=== PATIENT | female | born 1955 | race Caucasian/White ===

== ENCOUNTER 2016-09-14 13:15 | Emergency (ER) | payer MEDICAID ==
[2016-09-14 13:16] VITALS: BMI 23.8
[2016-09-14 13:30] VITALS: TEMP 98.1; O2SAT 98
--- NOTE | 2016-09-14 14:47 | C.PDOC ---
Time Seen by Provider: 09/14/16 13:44 Chief Complaint (Nursing): Upper Extremity Problem/Injury Past Medical History Vital Signs: Last Vital Signs Temp 98.1 F 09/14/16 13:25 Pulse 73 09/14/16 13:25 Resp 20 09/14/16 13:25 BP 147/90 09/14/16 13:25 Pulse Ox 98 09/14/16 13:25 - Medical History PMH: Asthma, Bronchitis, HTN, Hyperlipidemia Denies: Chronic Kidney Disease Family History: States: Unknown Family Hx - Social History Hx Alcohol Use: No Hx Substance Use: No - Immunization History Hx Tetanus Toxoid Vaccination: No Hx Influenza Vaccination: No Hx Pneumococcal Vaccination: No ED Course And Treatment O2 Sat by Pulse Oximetry: 98 Disposition Counseled Patient/Family Regarding: Diagnosis, Need For Followup, Rx Given - Disposition Referrals: Red Brown MD [Staff Provider] - Disposition: HOME/ ROUTINE Disposition Time: 14:48 Condition: STABLE Additional Instructions: [place] Flexeril 5 mg cada 8 horas para el dolor en el hombro. Esta medicina te hace dormir, as que s consciente. Contine tomando Tylenol y antiinflamatorio que el oyu tiene en casa. Siga con iqbal mdico en 1-2 da Prescriptions: Cyclobenzaprine [Flexeril] 5 mg PO TID #9 tab Instructions: Muscle Spasm (ED) Forms: Gen Discharge Inst [place] - Clinical Impression Clinical Impression: Trapezius muscle spasm
--- NOTE | 2016-09-14 14:54 | C.PDOC ---
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 Pt denies fever, chills, numbness, weakness or any other complaints. Time Seen by Provider: 09/14/16 13:44 Chief Complaint (Nursing): Upper Extremity Problem/Injury History Per: Patient History/Exam Limitations: no limitations Onset/Duration Of Symptoms: Days Current Symptoms Are (Timing): Worse Quality: "Pain" Severity: Moderate Recent travel outside of the [place]: No Past Medical History Reviewed: Historical Data, Nursing Documentation, Vital Signs Vital Signs: Last Vital Signs Temp 98.1 F 09/14/16 13:25 Pulse 75 09/14/16 14:57 Resp 18 09/14/16 14:57 BP 132/72 09/14/16 14:57 Pulse Ox 98 09/14/16 23:05 - Medical History PMH: Asthma, Bronchitis, HTN, Hyperlipidemia Family History: States: Unknown Family Hx - Social History Hx Alcohol Use: No Hx Substance Use: No - Immunization History Hx Tetanus Toxoid Vaccination: No Hx Influenza Vaccination: No Hx Pneumococcal Vaccination: No Review Of Systems Constitutional: Negative for: Fever, Chills Musculoskeletal: Positive for: Shoulder Pain (left shoulder pain) Neurological: Negative for: Weakness, Numbness Physical Exam - Physical Exam Appears: Non-toxic, No Acute Distress Skin: Warm, Dry, No Rash Head: Atraumatic, Normacephalic Neck: Normal ROM, No Midline Cervical Tenderness, Paracervical Tenderness (mild left), Supple, Other (left trapezius tenderness with muscle spasm) Cardiovascular: Rhythm Regular, No Murmur Respiratory: Normal Breath Sounds, No Rales, No Rhonchi, No Wheezing Extremity: No Normal ROM (decreased ROM left shoulder secondary to pain), No Deformity, No Swelling Neurological/Psych: Oriented x3, Normal Speech, Normal Motor, Normal Sensation ED Course And Treatment O2 Sat by Pulse Oximetry: 98 (room air) Pulse Ox Interpretation: Normal Progress Note: Instructed patient to continue tylenol/nsaid, added muscle relaxant and warm compresses. Disposition - Disposition Referrals: Red Brown MD [Staff Provider] - Disposition: HOME/ ROUTINE Disposition Time: 14:55 Condition: STABLE Additional Instructions: [place] Flexeril 5 mg cada 8 horas para el dolor en el hombro. Esta medicina te hace dormir, as que s consciente. Contine tomando Tylenol y antiinflamatorio que el oyu tiene en casa. 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 - Scribe Statement The provider has reviewed the documentation as recorded by the Alexibcharito Ford All medical record entries made by the Scribe were at my direction and personally dictated by me. I have reviewed the chart and agree that the record accurately reflects my personal performance of the history, physical exam, medical decision making, and the department course for this patient. I have also personally directed, reviewed, and agree with the discharge instructions and disposition.
[2016-09-14 14:57] VITALS: BP 132/72; PULSE 75; RESP 18
== END 2016-09-14 14:58 | disposition home or self-care (01) ==
LOC: C.ER 13:15
DX: M62.838 Other muscle spasm (principal)

== ENCOUNTER 2017-08-31 15:53 | Emergency (ER) | payer MEDICAID ==
[2017-08-31 15:53] VITALS: BMI 23.8
[2017-08-31 16:14] VITALS: RESP 20; O2SAT 100
[2017-08-31 16:51] LABS: SQUAMOUS EPITHIAL 1 /hpf (0-5); URINE BACTERIA RARE (<OCC); URINE BILIRUBIN NEGATIVE (NEGATIVE); URINE BLOOD NEGATIVE (NEGATIVE); URINE CLARITY Hazy (Clear); URINE COLOR Yellow (YELLOW); URINE GLUCOSE (UA) NORMAL (Normal); URINE LEUKOCYTE ESTERASE NEG Leu/uL (Negative); URINE PROTEIN NEGATIVE (NEGATIVE); URINE UROBILINOGEN NORMAL mg/dL (0.2-1.0)
[2017-08-31 17:47] VITALS: BP 126/70; PULSE 57; TEMP 98.9
--- NOTE | 2017-08-31 19:05 | C.PDOC ---
History Of Present Illness 62 y/o female presents to the ER complaining of mild dysuria which has been present for the past 3 days. Patient states that she has not been evaluated by her PMD. Patient denies having nausea, vomiting, vaginal bleeding,and vaginal discharge. Chief Complaint (Nursing): Female Genitourinary History Per: Patient History/Exam Limitations: no limitations Onset/Duration Of Symptoms: Days Current Symptoms Are (Timing): Still Present Severity: Moderate Past Medical History Reviewed: Historical Data, Nursing Documentation, Vital Signs Vital Signs: Last Vital Signs Temp 98.9 F 08/31/17 17:47 Pulse 57 L 08/31/17 17:47 Resp 20 08/31/17 17:47 BP 126/70 08/31/17 17:47 Pulse Ox 100 08/31/17 19:07 - Medical History PMH: Asthma, Bronchitis, HTN, Hyperlipidemia Denies: Chronic Kidney Disease Other Surgeries: Hx of surgeries Family History: States: No Known Family Hx - Social History Hx Alcohol Use: No Hx Substance Use: No - Immunization History Hx Tetanus Toxoid Vaccination: No Hx Influenza Vaccination: No Hx Pneumococcal Vaccination: No Review Of Systems Except As Marked, All Systems Reviewed And Found Negative. Gastrointestinal: Negative for: Nausea, Vomiting Genitourinary: Positive for: Dysuria. Negative for: Vaginal Discharge, Vaginal Bleeding Physical Exam - Physical Exam Appears: Non-toxic, No Acute Distress Skin: Normal Color, Warm, Dry Head: Atraumatic, Normacephalic Eye(s): bilateral: Normal Inspection Nose: Normal Oral Mucosa: Moist Neck: Supple Chest: Symmetrical Cardiovascular: Rhythm Regular Respiratory: Normal Breath Sounds, No Rales, No Rhonchi, No Wheezing Gastrointestinal/Abdominal: Normal Exam, Soft, No Tenderness, No Guarding, No Rebound Neurological/Psych: Oriented x3, Normal Speech ED Course And Treatment O2 Sat by Pulse Oximetry: 100 (RA) Pulse Ox Interpretation: Normal Medical Decision Making Medical Decision Making: Plan: --UA Updates: Patient has been discharged and instructed to follow up with PMD and women's health clinic in 3-4 days. Disposition - Disposition Referrals: [facility] [Outside] [facility] [Outside] Red Brown MD [Staff Provider] - Disposition: HOME/ ROUTINE Disposition Time: 17:30 Condition: GOOD Additional Instructions: AMINA MYRICK, thank you for letting us take care of you today. The emergency medical care you received today was directed at your acute symptoms. If you were prescribed any medication, please fill it and take as directed. It may take several days for your symptoms to resolve. Return to the Emergency Department if your symptoms worsen, do not improve, or if you have any other problems. Please contact your doctor or call one of the physicians/clinics you have been referred to that are listed on the Patient Visit Information form that is included in your discharge packet. Bring any paperwork you were given at discharge with you along with any medications you are taking to your follow up visit. Our treatment cannot replace ongoing medical care by a primary care provider outside of the emergency department. Thank you for allowing the [facility] team to be part of your care today. Follow up with your primary care doctor and the women's health clinic in 3-4 days for re-evaluation and further management. AMINA MYRICK, deric por dejarnos atenderlo kortney. La atencin mdica de emergencia que recibi hoy estaba dirigida a celia sntomas agudos. Si le prescribieron algn medicamento, llnelo y tome segn las indicaciones. Celia s ntomas pueden tardar varios jacobson en resolverse. Regrese al Departamento de Emergencia si celia sntomas empeoran, no mejoran o si tiene algn otro problema. Comunquese con iqbal mdico o llame a [place] de los mdicos / clnicas a los que burrell sido referido que figura en el formulario de Informacin de visita del paciente que se incluye en iqbal paquete de baltazar. Traiga todos los documentos que recibi al momento del baltazar junto con los medicamentos que est tomando en iqbal visita de seguimiento. Nuestro tratamiento no puede reemplazar la atencin mdica en curso por un proveedor de atencin primaria fuera del departamento de emergencia. Deric por permitir que el equipo de [facility] sea parte de iqbal cuidado hoy. Grayson un seguimiento con iqbal mdico de atencin primaria y la clnica de ivana de la shira en 3-4 jacobson para alessia nueva evaluacin y administracin adicional. Prescriptions: Ciprofloxacin [Cipro] 500 mg PO BID #10 tab Ibuprofen [Motrin] 600 mg PO Q6 PRN #20 tab PRN Reason: Pain, Moderate (4-7) Instructions: Urinary Tract Infection, Adult (DC) Forms: Gen Discharge Inst Citizen [place], Booker (Citizen [place]) Print Language: WOLOF - Clinical Impression Clinical Impression: Dysuria - Scribe Statement The provider has reviewed the documentation as recorded by the Scribe Patric Stoll Provider Attestation: All medical record entries made by the Scribe were at my direction and personally dictated by me. I have reviewed the chart and agree that the record accurately reflects my personal performance of the history, physical exam, medical decision making, and the department course for this patient. I have also personally directed, reviewed, and agree with the discharge instructions and disposition.
== END 2017-08-31 18:00 | disposition home or self-care (01) ==
LOC: C.ER 15:53
DX: R30.0 Dysuria (principal); I10 Essential (primary) hypertension; E78.5 Hyperlipidemia, unspecified